=== PATIENT | female | born 1970 | race Caucasian/White ===

== ENCOUNTER 2025-04-26 16:59 | Emergency (ER) | payer BC, SELFPAY ==
[2025-04-26 17:07] VITALS: BP 134/96
[2025-04-26 17:34] LABS: Hematocrit 35.3 % (37.0-47.0); Hemoglobin 12.1 g/dL (12.0-16.0); Mean Corp Hgb Conc. 34.3 g/dL (33.0-37.0); Mean Corpuscular Volume 86.9 fL (81.0-99.0); Nucleated Red Blood Cells % 0 %; Platelet Count 213 10^3/uL (130-400); Red Cell Dist. Width 13.2 % (11.5-14.5)
[2025-04-26 17:57] LABS: ALT (SGPT) 21 U/L (0-35); AST (SGOT) 23 U/L (14-36); Albumin 3.9 g/dl (3.5-5.0); Alkaline Phosphatase 116 U/L (38-126); Blood Urea Nitrogen 13 mg/dl (7-17); Calcium 8.7 mg/dl (8.4-10.2); Carbon Dioxide 28 mmol/L (22-30); Chloride 104 mmol/L (98-107); Glucose 204 mg/dl (70-99); Potassium 5.2 mmol/L (3.5-5.1); Sodium 138 mmol/L (135-145); Total Protein 7.7 g/dl (6.3-8.2); eGFR > 60.00
--- NOTE | 2025-04-26 19:36 | ED.GENMED ---
History of Present Illness
General
Chief Complaint: Abdominal Pain
Time Seen by Provider: 04/26/25 19:25
History of Present Illness
History of Present Illness:
54-year-old female with history of insulin-dependent diabetes presents to the emergency department for evaluation of right lower quadrant pain for the past 2 days. Pain seems to have improved somewhat today but still remains, states that it is
worse whenever bending forward or walking. No fever, chills, sweats, nausea, vomiting, or diarrhea. Has not taken any medications for pain control. Prior abdominal surgery includes , right oophorectomy, and appendectomy. No dysuria or
hematuria. No diarrhea
Review of Systems
Review of Systems
Allergies reviewed?: Yes
All Other Systems: ROS reviewed and negative except as documented in HPI and ROS
Phy Exam
Physical Exam
Physical Exam:
GEN: Well appearing, NAD, WDWN
HEENT: Oral mucosa moist, no scleral icterus
Cardiac: Regular rate
Lung: No respiratory distress, no tachypnea
Abdomen: Soft, mildly tender to the right lower quadrant/right groin, no palpable hernia, obesity limits exam
MSK: No gross deformity or injuries
Skin: Good color, no pallor or jaundice, no rashes
Neuro: AO x3, moves all extremities freely
Psych: Calm, cooperative
Course
Orders/Labs/Results
Orders:
Orders
04/26/25 17:23
CMP [Comprehensive Metabolic Panel] Urgent
Complete Blood Count/With Diff Urgent
04/26/25 19:36
CT Abd/Pel (IV only)-DH only Urgent
Comment:
Reason For Exam: RLQ pain
04/26/25 21:45
Amoxicillin 875 mg/Clav 125 mg [Augmentin 875 mg/125 mg] 1 tablet PO NOW STA
Abnormal Lab Results
04/26/25
17:23
RBC 4.06 L 10^6/uL
(4.20-5.40)
Hct 35.3 L %
(37.0-47.0)
Lymphocytes % 19.8 L %
(20.5-51.1)
Potassium 5.2 H mmol/L
(3.5-5.1)
Creatinine 0.5 L mg/dL
(0.6-1.0)
Glucose 204 H mg/dl
(70-99)
04/26/25 17:23
04/26/25 17:23
Vital Signs
Initial and Last Documented VS:
Initial Vital Signs
Temp Pulse Resp BP Pulse Ox
98.3 F 106 20 134/96 99
04/26/25 17:07 04/26/25 17:07 04/26/25 17:07 04/26/25 17:07 04/26/25 17:07
Last Documented Vital Signs
Temp Pulse Resp BP Pulse Ox
98.5 F 89 18 163/91 98
04/26/25 21:56 04/26/25 19:54 04/26/25 19:54 04/26/25 21:00 04/26/25 21:00
MDM/Problems Addressed
MDM/Problems Addressed:
Imaging reveals acute ascending colitis, her labs are reassuring and vital signs remained stable in the ED. Pain is not severe and she notes that it seems to have improved. She does not have diarrhea to collect stool specimens thus we will treat
empirically with Augmentin, encouraged strict ED return parameters to include worsening pain or fever given that she is diabetic
*Pulse Oximetry
SaO2: 99
Oxygen Mode of Delivery: Room air
Patient hypoxic: no
*Critical Care Note
Total Time (30-74mins, 75-104mins- exclusive of procedures): Not Applicable
ED Attending Note
-
Portions of this chart may have been created with voice recognition software.� Occasional wrong word or��sound alike� substitutions may have occurred due to the inherent limitations of voice recognition software.
Discharge Plan
Departure
Patient Disposition: Home (Routine Discharge)
Date of Disposition: 04/26/25
Time of Disposition: 21:46
Patient with high blood pressure during this ER visit?: No
Discharge Problem:
Colitis
Instructions: Colitis - Discharge instructions
Prescriptions:
New
amoxicillin-pot clavulanate 875-125 mg tablet
1 tab PO BID 7 Days Qty: 14 0RF
Referrals:
Georges Montoya DO [Family Provider, Family Practice]
Interventions
Interventions:
*Risk Screen - Suicide Last Done: 04/26/25 17:07
*General Assessment Last Done: 04/26/25 17:07
*Neglect/Abuse Screening Last Done: 04/26/25 19:55
*ED- Fall Risk Assessment Last Done: 04/26/25 19:55
*ED COVID-19 Vaccine History Last Done: 04/26/25 19:55
*Nursing Disposition Last Done: 04/26/25 21:56
OF-Axnmwo-Fxbteertzg Assessment Last Done: 04/26/25 19:56
Discharge Date and Time
Discharge Date/Time: 04/26/25 21:56
Print Language: HEBREW
[2025-04-26 19:53] VITALS: BP 155/89
[2025-04-26 19:54] VITALS: BP 155/89
[2025-04-26 19:55] VITALS: BMI 40.3
[2025-04-26 20:00] VITALS: BP 157/83
[2025-04-26 21:00] VITALS: BP 163/91
[2025-04-26] MEDS: AUGMENTIN 875 MG/125 MG 1 TABLET PO (21:52)
== END 2025-04-26 21:56 | disposition home or self-care (01) ==
LOC: EMR 16:59
PROVIDERS: Emergency Medicine; EMERGENCY PHYSICIAN Emergency Medicine; FAMILY PHYSICIAN Family Medicine
DX: K52.9 Noninfective gastroenteritis and colitis, unspecified (principal); E11.9 Type 2 diabetes mellitus without complications; Z79.4 Long term (current) use of insulin
CPT/HCPCS: 99284; 74177; 80053; 85025; Q9967